=== PATIENT | female | born 1985 | race Caucasian/White ===

== ENCOUNTER 2019-08-20 15:15 | Emergency (ER) | payer SELFPAY ==
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
[2019-08-20 15:31] VITALS: BP 115/78; PULSE 106; RESP 18; TEMP 36.7; O2SAT 99; BMI 34.3
[2019-08-20] MEDS: lidocaine 1% INJ 20 mL INJECTION (16:28)
[2019-08-20 16:29] VITALS: RESP 18
[2019-08-20] MEDS: ceFAZolin 1,000 mg SDV 1000 MG IM (17:01)
[2019-08-20] MEDS: tetanus-diphtheria tox (adult) 0.5 mL SDV IM (17:02)
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
[2019-08-20] MEDS: water for injection-sterile 10 ML 2.5 ML (17:09)
[2019-08-20 17:33] VITALS: BP 113/79; PULSE 93; RESP 16; O2SAT 100
== END 2019-08-20 17:38 | disposition home or self-care (01) ==
PROVIDERS: Emergency Provider Family Medicine; Family Provider Nurse Practitioner Family
DX: S91.302A Unspecified open wound, left foot, initial encounter (principal); W33.02XA Accidental discharge of hunting rifle, initial encounter; F17.210 Nicotine dependence, cigarettes, uncomplicated; Z23 Encounter for immunization
CPT/HCPCS: 12002; 12345; 73630; 90471; 90714; 96372; 99282; 99283; E0114; J0690; J2001